=== PATIENT | male | born 1970 | race Caucasian/White ===

== ENCOUNTER 2019-07-24 23:43 | Emergency (ER) | payer MEDICAID ==
[~2019-07-24] VITALS: Ht 180.3 cm; Wt 134.3 kg
[2019-07-24 23:51] VITALS: Ht 180.3 cm; Wt 134.3 kg
[2019-07-25 00:29] VITALS: BP 122/82
== END 2019-07-25 00:29 | disposition home or self-care (01) ==
LOC: ED 23:43
DX: S80.01XA Contusion of right knee, initial encounter (principal); E11.9 Type 2 diabetes mellitus without complications; W01.0XXA Fall on same level from slipping, tripping and stumbling without subsequent striking against object, initial encounter; Y93.89 Activity, other specified; Y92.512 Supermarket, store or market as the place of occurrence of the external cause; Y99.8 Other external cause status